=== PATIENT | female | born 1980 | race African-American/Black ===

== ENCOUNTER 2017-05-24 16:47 | Emergency (ER) | payer BC | END 2017-05-24 17:45 | disposition home or self-care (01) | LOC: E/R 16:47 | DX: R05 Cough (principal) | CPT/HCPCS: 99284; Z7502 ==

== ENCOUNTER 2018-12-23 21:03 | Observation (INO) | payer BC ==
[2018-12-23 23:30] LABS: ADD MAN DIFF? NO
[2018-12-23] MEDS ORDERED: ACETAMINOPHEN 325 MG TAB PO (23:30)
[2018-12-23] MEDS ORDERED: ONDANSETRON 4 MG INJ IV (23:30)
[2018-12-23 23:33] LABS: BASOPHILS % 0.4 % (0.0-2.0); EOSINOPHILS # 0.1 10^3/ul (0.0-0.5); EOSINOPHILS % 1.4 % (0.0-7.0); HEMATOCRIT 34.6 % (37.0-47.0); HEMOGLOBIN 11.3 g/dl (12.0-16.0); LYMPHOCYTES # 3.6 10^3/ul (0.8-2.9); LYMPHOCYTES % 51.7 % (15.0-51.0); MEAN CORPUSCULAR HGB CONC 32.7 g/dl (32.0-37.0); MEAN CORPUSCULAR VOLUME 85.9 fl (82.0-101.0); MEAN PLATELET VOLUME 11.1 fl (7.4-10.4); MONOCYTE # 0.5 10^3/ul (0.3-0.9); MONOCYTES % 6.5 % (0.0-11.0); NEUTROPHIL # 2.8 10^3/ul (1.6-7.5); NEUTROPHILS % 39.9 % (39.0-77.0); PLATELET COUNT 300 10^3/UL (140-415); RED BLOOD COUNT 4.03 10^6/ul (4.20-5.40); RED CELL DISTRIBUTION WIDTH 13.1 % (11.5-14.5)
[2018-12-23 23:39] LABS: ANION GAP 12 (5-13); BLOOD UREA NITROGEN 7 mg/dl (7-20); CALCIUM 9.8 mg/dl (8.4-10.2); CARBON DIOXIDE 26 mmol/L (21-31); CHLORIDE 102 mmol/L (97-110); CREATININE 0.65 mg/dl (0.44-1.00); Estimated GFR > 60 mL/min (>60); GLUCOSE 79 mg/dl (70-220); INR 1.05; POTASSIUM 3.4 mmol/L (3.5-5.1); PROTIME 13.8 Sec (11.9-14.9); PT RATIO 1.1; SODIUM 140 mmol/L (135-144)
[2018-12-23 23:50] LABS: TROPONIN-I < 0.012 ng/ml (0.000-0.120)
[2018-12-24] MEDS ORDERED: IBUPROFEN 600 MG TAB PO (03:00)
[2018-12-24] MEDS ORDERED: ACETAMINOPHEN 325 MG TAB PO (03:00)
[2018-12-24] MEDS ORDERED: ALBUTEROL/IPRATROPIUM (NEB) 3 ML AMP HHN (03:00)
[2018-12-24] MEDS ORDERED: LORAZEPAM 0.5 MG TAB PO (03:00)
[2018-12-24] MEDS ORDERED: ONDANSETRON 4 MG INJ IV (03:00)
[2018-12-24] MEDS ORDERED: NACL 0.9% 3 ML SYG IV (03:00)
[2018-12-24] MEDS: SOD CHLORIDE 0.9% 1,000 ML IV ×3 (06:50→22:42)
[2018-12-24] MEDS: ALBUTEROL HFA 8 GM INHALER INH ×5 (06:51→20:25)
[2018-12-24] MEDS: HEPARIN 5,000 UNIT/1 ML VIAL SC ×2 (09:00→20:24)
[2018-12-24] MEDS: FLUTICASONE 0.05% 16 GM NAS SPRAY NASAL ×2 (09:00→20:22)
[2018-12-25] MEDS: ALBUTEROL HFA 8 GM INHALER INH ×4 (01:00→16:50)
[2018-12-25 06:04] LABS: ADD MAN DIFF? NO
[2018-12-25 06:08] LABS: BASOPHILS % 0.5 % (0.0-2.0); EOSINOPHILS # 0.2 10^3/ul (0.0-0.5); EOSINOPHILS % 3.2 % (0.0-7.0); HEMATOCRIT 30.6 % (37.0-47.0); HEMOGLOBIN 9.8 g/dl (12.0-16.0); LYMPHOCYTES # 3.4 10^3/ul (0.8-2.9); LYMPHOCYTES % 54.7 % (15.0-51.0); MEAN CORPUSCULAR HEMOGLOBIN 28.1 pg (29.0-33.0); MEAN CORPUSCULAR VOLUME 87.7 fl (82.0-101.0); MEAN PLATELET VOLUME 11.2 fl (7.4-10.4); MONOCYTE # 0.5 10^3/ul (0.3-0.9); NEUTROPHIL # 2.1 10^3/ul (1.6-7.5); NEUTROPHILS % 33.4 % (39.0-77.0); PLATELET COUNT 244 10^3/UL (140-415); RED BLOOD COUNT 3.49 10^6/ul (4.20-5.40); RED CELL DISTRIBUTION WIDTH 13.2 % (11.5-14.5)
[2018-12-25 06:08] LABS: WHITE BLOOD COUNT 6.2 10^3/ul (4.8-10.8)
[2018-12-25 06:47] LABS: ALANINE AMINOTRANSFERASE 14 IU/L (13-69); ALBUMIN 3.7 g/dl (3.3-4.9); ALBUMIN/GLOBULIN RATIO 1.08; ALKALINE PHOSPHATASE 61 IU/L (42-121); ANION GAP 7 (5-13); ASPARTATE AMINO TRANSFERASE 17 IU/L (15-46); BILIRUBIN,INDIRECT 0.8 mg/dl (0-1.1); BILIRUBIN,TOTAL 0.8 mg/dl (0.2-1.3); BLOOD UREA NITROGEN 5 mg/dl (7-20); CALCIUM 8.9 mg/dl (8.4-10.2); CARBON DIOXIDE 27 mmol/L (21-31); CHLORIDE 107 mmol/L (97-110); CREATININE 0.61 mg/dl (0.44-1.00); Estimated GFR > 60 mL/min (>60); GLUCOSE 85 mg/dl (70-220); MAGNESIUM 1.6 mg/dl (1.7-2.5); POTASSIUM 3.6 mmol/L (3.5-5.1); SODIUM 141 mmol/L (135-144); TOTAL PROTEIN 7.1 g/dl (6.1-8.1)
[2018-12-25 07:09] LABS: THYROID STIMULATING HORMONE 0.381 MIU/L (0.465-4.680)
[2018-12-25] MEDS: HEPARIN 5,000 UNIT/1 ML VIAL SC (09:00)
[2018-12-25] MEDS: FLUTICASONE 0.05% 16 GM NAS SPRAY NASAL (09:00)
[2018-12-25] MEDS: MAGNESIUM SULFATE 1 GM/D5W 100 ML IVPB (12:06)
[2018-12-25 12:19] LABS: ADD UMIC YES; UR ASCORBIC ACID NEGATIVE (NEGATIVE); UR BILIRUBIN (Dip) NEGATIVE (NEGATIVE); UR BLOOD (Dip) NEGATIVE (NEGATIVE); UR CLARITY CLEAR (CLEAR); UR COLOR YELLOW (YELLOW); UR GLUCOSE (Dip) NEGATIVE (NEGATIVE); UR KETONES (Dip) TRACE mg/dL (NEGATIVE); UR LEUKOCYTE ESTERASE (Dip) TRACE Leu/ul (NEGATIVE); UR MUCUS FEW /HPF (NONE SEEN); UR NITRITE (Dip) NEGATIVE (NEGATIVE); UR RBC 0 /HPF (0-5); UR SPECIFIC GRAVITY (Dip) 1.015 (1.003-1.030); UR SQUAMOUS EPITHELIAL CELL FEW /HPF (FEW); UR TOTAL PROTEIN (Dip) NEGATIVE (NEGATIVE); UR UROBILINOGEN (Dip) NEGATIVE (NEGATIVE); UR WBC 2 /HPF (0-5)
[2018-12-25 16:05] LABS: FREE THYROXINE INDEX (Calc) 3.36 ug/ml (0.65-3.89); T3 UPTAKE 38.6 % (23.5-40.5); T4 (THYROXINE) 8.7 ug/dl (5.5-11.0)
[2018-12-25 16:15] LABS: AMPHETAMINE/METHAMPHETAMINE NEGATIVE (NEGATIVE); BARBITURATES NEGATIVE (NEGATIVE); BENZODIAZEPINES NEGATIVE (NEGATIVE); CANNABINOIDS NEGATIVE (NEGATIVE); COCAINE NEGATIVE (NEGATIVE); OPIATES NEGATIVE (NEGATIVE)
== END 2018-12-25 18:38 | disposition home or self-care (01) ==
LOC: E/R 21:03 → 6WM 23:16
DX: R55 Syncope and collapse (principal); R10.31 Right lower quadrant pain; R19.7 Diarrhea, unspecified; E87.6 Hypokalemia; R25.2 Cramp and spasm
CPT/HCPCS: 71045; 74176; 80048; 80053; 80307; 81001; 81025; 83735; 84436; 84443; 84479; 84484; 85025; 85610; 87591; 93005; 99285-25; G0378